=== PATIENT | female | born 1995 | race Asian ===

== ENCOUNTER 2019-02-05 19:01 | Outpatient (CLI) | payer OTHER, SELFPAY ==
[2019-02-05 20:06] LABS: APPEARANCE, URINE HAZY (CLEAR); BACTERIA, URINE AUTO 1+ (NEGATIVE); BILIRUBIN, URINE AUTO NEGATIVE (NEGATIVE); BLOOD, URINE BLOOD NEGATIVE (NEGATIVE); COLOR, URINE STRAW (YELLOW); GLUCOSE, URINE (UA) AUTO NEGATIVE (NEGATIVE); KETONE, URINE AUTO NEGATIVE (NEGATIVE); LEUKOCYTE ESTERASE, URINE AUTO 3+ (NEGATIVE); MUCUS, URINE SMALL (NEGATIVE); NITRITE, URINE AUTO NEGATIVE (NEGATIVE); PROTEIN, URINE AUTO NEGATIVE (NEGATIVE); RBC, URINE AUTO 5 /HPF (0-3); SPECIFIC GRAVITY URINE AUTO 1.001 (1.002-1.035); SQUAMOUS EPITHELIAL CELL UR AU 6 /HPF (0-6); UROBILINOGEN, URINE AUTO 0.2 mg/dL (0.0-2.0); WBC, URINE AUTO 28 /HPF (0-3)
[2019-02-05] MEDS ORDERED: NITROFURANTOIN (MACROBID) 100 MG CAP PO ONE (20:30)
[2019-02-05] MEDS ORDERED: MACR100C43 PO (20:45)
== END 2019-02-05 20:40 | disposition home or self-care (01) ==
LOC: M LDO 19:01
PROVIDERS: ATTEND Advanced Practice Midwife
DX: O47.03 False labor before 37 completed weeks of gestation, third trimester (principal); O26.893 Other specified pregnancy related conditions, third trimester; R10.2 Pelvic and perineal pain; Z3A.31 31 weeks gestation of pregnancy
CPT/HCPCS: 59025; 81001; G0378; G0463

== ENCOUNTER 2019-04-11 13:46 | Inpatient (IN) | payer OTHER ==
[~2019-04-11] VITALS: Ht 147.3 cm; Wt 62.6 kg
[~2019-04-11 13:46] MED LIST: MACR100C43 PO
[2019-04-11] MEDS ORDERED: VITA100T59 PO (14:07)
[2019-04-11] MEDS ORDERED: PRENTAB9 PO (14:07)
[2019-04-11] MEDS ORDERED: IRON325T2 PO (14:07)
[2019-04-11 14:09] VITALS: BP 110/60
[2019-04-11] MEDS ORDERED: LR 1,000 ML IV SCH (15:05)
[2019-04-11] MEDS ORDERED: LACTATED RINGER'S 1000 ML IV STA (15:05)
[2019-04-11 15:13] VITALS: BP 109/65
[2019-04-11 15:25] LABS: HEMATOCRIT 31.6 % (36.0-47.0); HEMOGLOBIN 10.6 g/dl (12.0-15.5); MEAN CORPUSCULAR HEMOGLOBIN 30.6 pg (27.0-33.0); MEAN CORPUSCULAR HGB CONC 33.5 g/dl (32.0-36.5); MEAN CORPUSCULAR VOLUME 91.3 fl (80.0-96.0); PLATELET COUNT, AUTOMATED 210 10^3/uL (150-450); RED BLOOD COUNT 3.46 10^6/uL (4.00-5.40)
--- NOTE | 2019-04-11 15:39 | HPEPDOC ---
Obstetrical History & Physical General Date of Admission Apr 11, 2019 at 14:10 Primary Care Physician: BRIANNA THORNE DO History of Present Illness patient is a 23 yo @ 40+2WKS gestation KARTIK [id number] presents for regular painful contractions. patient desires to have epidural for pain management. denies LOF/VB. +fm. Chief Complaint: Contractions, term Information Provided By: Patient Age: 23 : 2 Term: 1 Pre-term: 0 Abortions: 0 Livin Care Care: Good Care Dating Final EDC: Apr 09, 2019 Final EDC for Daily Update: Apr 09, 2019 Final EDC by: LMP LMP: Jul 03, 2018 EGA at Admission: 40.2 Past Medical History Past Obstetrical History : Past Obstetrical History: Multigravida Type of Delivery: Spontaneous Vaginal Del. 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: No pertinent history Past Medical History Medical History denies Surgical History: Denies/None Family History Significant Family History: No pertinent family hx Social History Social history denies tob/etoh/illicit rx Marital Status: Family situation: Spouse/partner home Psychosocial History: No pertinent psych hx * Smoker: former Smoker Alcohol: Denies Drugs: denies Imunizations Tdap status: current Influenza Status: needs Allergies Coded Allergies: No Known Allergies (Unverified , 02/05/19) Medications Scheduled Ascorbic Acid (Vitamin C) 100 Mg Tablet, 1 TAB PO TID Ferrous Sulfate (Iron) 325 Mg Tablet, 1 TAB PO TID No.137/Iron/Folic Acd ( Vitamin Tablet) 1 Each Tablet, 1 TAB PO DAILY Physical Examination Physical Examination GENERAL: Alert and oriented times three. BREAST: . ABDOMEN: Gravid and non-tender to touch. FETUS: Is vertex (VTX) by sterile vaginal examination (SVE), fetus is vertex (VTX) by Guilherme. HEART RATE: Regular rate and rhythm. LUNGS: Clear to auscultation (CTA). EXTREMITIES: No edema. No clonus. Deep tendon reflexes (DTRs) + . Vital Signs/I&O Vital Signs Date Time Temp Pulse Resp B/P (MAP) Pulse Ox O2 Delivery O2 Flow Rate FiO2 04/11/19 14:09 97.7 83 20 110/60 (77) Laboratory Data 24H LABS Laboratory Tests 2 04/11/19 14:38: Serology Scanned Report Hepatitis B Testing Pertinent Laboratoy Data Blood Type: O+ RBC Antibody Screen: Negative HIV: Negative Hepatitis B: Negative Hepatitis C: Unknown Rapid Plasma Reagin: Nonreactive Rubella: Immune Varicella: Immune Chlamydia/Gonorrhea: Negative Group B Streptococcus: Negative Quad Screen Test: Negative Glucose Tolerance Test: 136 (3hr: 86/151/151/130) Anatomy Ultrasound Ultrasound Date: December 06, 2017 Placenta Location: Anterior Normal Anatomy: Yes Assessment/Plan Assessment patient is a 23 yo @40+2wks gestation KARTIK [id number] in labor. patient d esires epidural for pain management. Plan Admit and orient. 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 Diet: clear fluid Group B Streptococcus (GBS) negative. Labs and intravenous (IV) per unit protocol. Counseled on Pitocin for augmentation as needed. Lactated Ringers (LR): Bolus 1000 mL, then at 125 mL/hr. Anticipate normal spontaneous delivery (). C-S as appropriate DO Alexa Labor and Delivery Counseling Counseled patient on risks of emergent delivery for or maternal concerns. Discussed risks of operative vaginal delivery of vacumn or forceps for concern or prolonged second stage, risks of bleeding requiring blood transfusion, infection requiring antibiotics and prolonged hospital stay. discussed monitoring for contractions and heart tracing, IUPC as well as fse. DO ALEXA Thorne LUAT N. DO Apr 11, 2019 15:05
[2019-04-11 16:16] VITALS: BP 113/69
--- NOTE | 2019-04-11 17:16 | IPNPDOC ---
Text Note Date of Service The patient was seen on 04/11/19. NOTE Patient received bolus of 1L LR. Her contractions slows down as well as decr eased in intensity. Patient expresses desires to go home if she has not made progress in her cervical dilation. vitals: reviewed, normal NAD abd: nd, soft, nt, cephalic ce: 4/80/-3, medium, posterior fht: reactive a/p patient is @ 40+2wks, not in active labor at this time. Discussed return pr ecautions (frequent painful contractions, vaginal bleeding, lost of fluid, decreased movement). Discharged as outpatient visit. DO Fadumo VS,Kevin, I+O VS, Fishbone, I+O Laboratory Tests 04/11/19 15:09 Red Blood Count 3.46 L, Mean Corpuscular Volume 91.3, Mean Corpuscular Hemoglobin 30.6, Mean Corpuscular Hemoglobin Concent 33.5, Red Cell Distribution Width 13.2 Vital Signs Date Time Temp Pulse Resp B/P (MAP) Pulse Ox O2 Delivery O2 Flow Rate FiO2 04/11/19 16:16 74 18 113/69 (84) 04/11/19 14:09 97.7 BRIANNA LIU DO Apr 11, 2019 17:16
[2019-04-11 17:31] VITALS: BP 122/70
== END 2019-04-11 17:47 | disposition home or self-care (01) | DRG 833 ==
LOC: M LDO 13:46 → M LDI 14:10
PROVIDERS: ADMIT Obstetrics & Gynecology; ATTEND Obstetrics & Gynecology
DX: O48.0 Post-term pregnancy (principal); Z3A.40 40 weeks gestation of pregnancy

== ENCOUNTER 2019-04-12 04:51 | Inpatient (IN) | payer OTHER ==
[2019-04-12] VITALS (23 sets, daily range): BP systolic 92–126; BP diastolic 54–79
[~2019-04-12] VITALS: Ht 147.3 cm; Wt 62.8 kg
[~2019-04-12 04:51] MED LIST changes: +IRON325T2 PO; +PRENTAB9 PO; +VITA100T59 PO
[2019-04-12] MEDS ORDERED: OXYTOCIN 30 UNITS IN 0.9% NaCl 500ML IV BAG (J2590) As Ordered ONE (06:18)
[2019-04-12 06:56] LABS: HEMATOCRIT 30.7 % (36.0-47.0); HEMOGLOBIN 9.8 g/dl (12.0-15.5); MEAN CORPUSCULAR HEMOGLOBIN 30.2 pg (27.0-33.0); MEAN CORPUSCULAR HGB CONC 31.9 g/dl (32.0-36.5); MEAN CORPUSCULAR VOLUME 94.5 fl (80.0-96.0); PLATELET COUNT, AUTOMATED 192 10^3/uL (150-450); RED BLOOD COUNT 3.25 10^6/uL (4.00-5.40); WHITE BLOOD COUNT 15.8 10^3/uL (4.0-10.0)
[2019-04-12] MEDS ORDERED: LR 1,000 ML IV SCH (07:19)
[2019-04-12] MEDS ORDERED: MEASLES,MUMPS,RUBELLA VACCINE INJ (MMR-II) (90707) SC SCH (07:30)
[2019-04-12] MEDS ORDERED: DOCUSATE SODIUM 100 MG CAP PO PRN (07:30)
[2019-04-12] MEDS ORDERED: RHOGAM 300 MCG (1500 IU) INJ (J2790) IM SCH (07:30)
[2019-04-12] MEDS ORDERED: ACETAMINOPHEN 500 MG TAB PO PRN (07:30)
[2019-04-12] MEDS ORDERED: DIBUCAINE 1% OINTMENT 30GM TOP PRN (07:30)
[2019-04-12] MEDS ORDERED: IBUPROFEN 600 MG TAB PO PRN (07:30)
[2019-04-12] MEDS ORDERED: IBUPROFEN 800 MG TAB PO PRN (07:30)
[2019-04-12 07:43] LABS: CORD GAS ABE A -7.4; CORD GAS HCO3 A 17.5 MEQ/L; CORD GAS O2 SAT A 88.5 %; CORD GAS PCO2 A 33.9 mmHg; CORD GAS PH A 7.33 UNITS; CORD GAS PO2 A 48.7 mmHg; CORD GAS SBC A 18.4 MEQ/L; CORD GAS TCO2 A 18.5 MEQ/L
[2019-04-12 07:44] LABS: CORD GAS ABE V -5.5; CORD GAS HCO3 V 19.4 MEQ/L; CORD GAS O2 SAT V 96.1 %; CORD GAS PCO2 V 36.1 mmHg; CORD GAS PH V 7.348 UNITS; CORD GAS PO2 V 66.7 mmHg; CORD GAS TCO2 V 20.5 MEQ/L
[2019-04-12] MEDS ORDERED: OXYTOCIN DRIP 30 UNITS in IV 1 EA IV SCH (08:00)
[2019-04-12] MEDS ORDERED: LIDOCAINE 1% MDV 20ML VIAL SC ONE (08:00)
[2019-04-12] MEDS ORDERED: METHYLERGONOVINE MALEATE 0.2 MG/ML VIAL (J2210) IM ONE ×2 (08:00)
[2019-04-12] MEDS ORDERED: OXYTOCIN INJ 10 UNITS/ML VIAL (J2590) IM ONE ×2 (08:00)
[2019-04-12] MEDS ORDERED: miSOPROStol 200 MCG TAB (S0191) PR ONE (08:00)
[2019-04-12] MEDS ORDERED: METHYLERGONOVINE MALEATE 0.2 MG/ML VIAL (J2210) As Ordered ONE ×2 (08:06→08:07)
[2019-04-12] MEDS ORDERED: LIDOCAINE 1% MDV 20ML VIAL As Ordered ONE (08:08)
[2019-04-12] MEDS ORDERED: miSOPROStol 200 MCG TAB (S0191) As Ordered ONE (08:09)
[2019-04-12] MEDS ORDERED: OXYTOCIN INJ 10 UNITS/ML VIAL (J2590) As Ordered ONE (08:10)
[2019-04-12] MEDS ORDERED: AMPICILLIN SOD/SULBACTAM SOD 3 GM in D5W MINI-BAG PLUS 100 ML IV ONE (08:30)
--- NOTE | 2019-04-12 08:43 | HPEPDOC ---
Obstetrical History & Physical General Date of Admission Apr 12, 2019 at 05:42 History of Present Illness patient i a 23 yo G2 now p2 presented to l&d after she ruptured membrane at home and progressed to have spontaneous vaginal delivery. see delivery note for details. Care Care: Other Number of Visits: 6 Dating Final EDC: Apr 09, 2019 Past Medical History Past Obstetrical History : Past Obstetrical History: Multigravida ( x 2, shoulder dystocia and pph requiring blood transfusion with second delivery) Type of Delivery: Spontaneous Vaginal Del. Sex of : Female Complications: No Past Medical History Surgical History: Denies/None Family History Significant Family History: No pertinent family hx Social History Marital Status: Family situation: Spouse/partner home Psychosocial History: No pertinent psych hx * Smoker: non-smoker Alcohol: Denies Drugs: denies Allergies Coded Allergies: No Known Allergies (Unverified , 02/05/19) Medications Scheduled Ascorbic Acid (Vitamin C) 100 Mg Tablet, 1 TAB PO TID Ferrous Sulfate (Iron) 325 Mg Tablet, 1 TAB PO TID No.137/Iron/Folic Acd ( Vitamin Tablet) 1 Each Tablet, 1 TAB PO DAILY Physical Examination Physical Examination GENERAL: Alert and oriented times three. BREAST: . ABDOMEN: , fundus at U-2. HEART RATE: Regular rate and rhythm. LUNGS: Clear to auscultation (CTA). EXTREMITIES: No edema. No clonus. No erythema. non tender. scant vaginal bleeding with fundal rub Vital Signs/I&O Vital Signs Date Time Temp Pulse Resp B/P (MAP) Pulse Ox O2 Delivery O2 Flow Rate FiO2 04/12/19 08:14 99.7 04/12/19 08:00 90 16 99/58 (72) 99 Laboratory Data 24H LABS Laboratory Tests 2 04/12/19 05:44: Serology Scanned Report Hepatitis B Testing 04/12/19 06:51: Nucleated Red Blood Cells % (auto) 0.0 04/12/19 07:33: Cord Arterial Blood pH 7.330, Cord Arterial Blood PCO2 33.9, Cord Arterial Blood PO2 48.7, Cord Arterial Blood HCO3 17.5, Cord Arterial Blood Total CO2 18.5, Cord Arterial Blood Base Excess -7.4, Cord Arterial Base Excess (Standard 18.4, Cord Arterial Bld Oxygen Saturation 88.5, Cord Venous Blood pH 7.348, Cord Venous Blood PCO2 36.1, Cord Venous Blood PO2 66.7, Cord Venous Blood HCO3 19.4, Cord Venous Blood Total CO2 20.5, Cord Venous Base Excess (Actual) -5.5, Cord Venous Base Excess (Standard) 20.0, Cord Venous Blood Oxygen Saturation 96.1 CBC/BMP Laboratory Tests 04/12/19 06:51 Red Blood Count 3.25 L, Mean Corpuscular Volume 94.5, Mean Corpuscular Hemoglobin 30.2, Mean Corpuscular Hemoglobin Concent 31.9 L, Red Cell Distribution Width 13.5 Pertinent Laboratoy Data Blood Type: O+ RBC Antibody Screen: Negative HIV: Negative Hepatitis B: Negative Rapid Plasma Reagin: Nonreactive Rubella: Immune Varicella: Immune Chlamydia/Gonorrhea: Negative Group B Streptococcus: Negative Anatomy Ultrasound Placenta Location: Anterior Normal Anatomy: Yes Placenta Previa: No Assessment/Plan Assessment patient is a 23 yo G2now p2 s/p spontaneous vaginal delivery complicated by shoulder dystocia and hemorrhage. Patient received 3 units PRBC and 2 liters of NS transfused. Currently clinically stable. Plan Admit to l&d for care patient verbally consented for blood products Diet: regular Group B Streptococcus (GBS) negative labs ordered for now and 6hrs transfer patient to mother baby once meet criteria. DO ALEXA Thorne LUAT N. DO Apr 12, 2019 08:32
[2019-04-12] MEDS ORDERED: TRANEXAMIC ACID INJection 1,000 MG in NS 100 ML IV ONE (09:00)
[2019-04-12] MEDS: PRENATAL VITAMINS CHEWABLE TABLET PO SCH (09:00)
[2019-04-12 09:10] LABS: HEMATOCRIT 33.6 % (36.0-47.0); HEMOGLOBIN 11.2 g/dl (12.0-15.5); MEAN CORPUSCULAR HEMOGLOBIN 30.2 pg (27.0-33.0); MEAN CORPUSCULAR HGB CONC 33.3 g/dl (32.0-36.5); MEAN CORPUSCULAR VOLUME 90.6 fl (80.0-96.0); PLATELET COUNT, AUTOMATED 151 10^3/uL (150-450); RED BLOOD COUNT 3.71 10^6/uL (4.00-5.40); WHITE BLOOD COUNT 20.5 10^3/uL (4.0-10.0)
--- NOTE | 2019-04-12 09:13 | DNPDOC ---
[facility] Delivery Note Delivery Note DATE OF DELIVERY: [id number] PREDELIVERY DIAGNOSIS: 40+3/7 weeks' gestation and labor. POST DELIVERY DIAGNOSIS: Delivered. shoulder dystocia hemorrhage PROCEDURE: repair of second degree laceration PLATE EMBOSSER: Rolando Urbina DO ANESTHESIA: none ESTIMATED BLOOD LOSS: 1000 mL. FINDINGS: 8 pound 6 ounce female infant, Score 3/8/9, nuchal cord times x1 (tight) DELIVERY SUMMARY: Patient is a 23-year-old G2 now para 2002 who presented to l&d after spontaneous ruptured membrane at home. She was checked to be c/c/+2 with urge to push. Baby head delivered and restituted LOT. Tight nuchal cord palpated and was not able to be reduced. Anterior shoulder dystocia recognized after two subsequent pushes. Sumit maneuver and supra pubic pressure from left to right performed by nurse could not release shoulder. Posterior arm followed down and flexed arm at elbow. Posterior left arm delivered. Anterior shoulder delivered. Body delivered summersault through cord. Cord clamped x 2 and cut. Baby taken to warmer. Cord gas and cord blood collected. Pitocin 10U given IM due to lack of IV access at this point. Placenta delivered spontaneously. Fundus massaged firm. Patient continues to have brisk bleeding. Additional pitocin 10U IM given. Cytotec 1000mcg placed rectally. Hemorrhage kit and cart called for at this point. Two IVs started. Patient continues to have brisk bleeding. Methergine 0.2mg IM given. Uterine exploration did not find retained products. Speculum exam did not identify vaginal or cervical laceration. Lower uterine segment atony is presumed diagnosis at this point. Bleeding improved. EBL is at this point is 1000cc. At this point, patient begins to feel dizzy on bed. Unable to get bp with a light pulse. Lactated ringer bolus started. Massive transfusion protocol called for 2 units of PRBC. Total 3 units of PRBC given rapid transfusion. Addition methergine 0.2mg IM and IV pitocin given. Mendez cath placed. BP 118/58, HR: 100. patient stable. Unasyn 3gm IV ordered for prophy. Baby went to NICU for monitoring. DO ALEXA Thorne LUAT N. DO Apr 12, 2019 09:13
[2019-04-12 09:24] LABS: INR 1.12; PROTHROMBIN TIME 14.2 SECONDS (11.8-14.0)
[2019-04-12 09:25] LABS: PARTIAL THROMBOPLASTIN TIME 28.1 SECONDS (25.0-38.4)
[2019-04-12] MEDS: METHYLERGONOVINE MALEATE 0.2 MG TAB PO SCH ×3 (11:44→19:32)
[2019-04-12] MEDS ORDERED: METHYLERGONOVINE MALEATE 0.2 MG TAB PO SCH (12:00)
[2019-04-12 14:07] LABS: HEMATOCRIT 31.7 % (36.0-47.0); HEMOGLOBIN 10.8 g/dl (12.0-15.5); MEAN CORPUSCULAR HEMOGLOBIN 30.9 pg (27.0-33.0); MEAN CORPUSCULAR HGB CONC 34.1 g/dl (32.0-36.5); MEAN CORPUSCULAR VOLUME 90.6 fl (80.0-96.0); PLATELET COUNT, AUTOMATED 158 10^3/uL (150-450); WHITE BLOOD COUNT 17.7 10^3/uL (4.0-10.0)
[2019-04-13] MEDS: METHYLERGONOVINE MALEATE 0.2 MG TAB PO SCH (00:26)
[2019-04-13 06:00] VITALS: BP 96/62
[2019-04-13 07:28] LABS: MEAN CORPUSCULAR HEMOGLOBIN 30.4 pg (27.0-33.0); MEAN CORPUSCULAR HGB CONC 33.5 g/dl (32.0-36.5); MEAN CORPUSCULAR VOLUME 90.9 fl (80.0-96.0); PLATELET COUNT, AUTOMATED 151 10^3/uL (150-450); RED BLOOD COUNT 2.86 10^6/uL (4.00-5.40)
[2019-04-13 07:43] LABS: HEMOGLOBIN 8.7 g/dl (12.0-15.5)
--- NOTE | 2019-04-13 08:40 | IPN ---
DATE OF SERVICE: 04/13/2019 day #1. 23-year-old 2 now para 2 who was admitted fully dilated and precipitously was delivered at 40 and 3 weeks of gestation. She had a shoulder dystocia followed by a hemorrhage, delivered a live female 8 pounds 6 ounces, of 3, 8 and 9 at one, five, and ten minutes respectively. Arterial pH 7.33, base excess -7.4, venous pH 7.34, base excess -5.5. She sustained a second-degree tear which was repaired. Her stick hemoglobin on admission was 9.8, hematocrit was 30.7 and platelets are 192. After 3 units of O negative blood and the rapid transfusion, her hemoglobin was 10.8, hematocrit 31.7 and platelets were 158. We are pending hemoglobin at 0630 hours this morning. The rest the examination is unremarkable. Normocephalic, atraumatic. Neck: Full range of motion. Pupils equal and reactive to light. Distal pulses symmetric. No evidence of DVT, PE or superficial phlebitis. Chest is clear bilaterally bases. No wheezes or rhonchi. No CVA tenderness. Abdomen soft. Uterus two below. Lochia is moderate. Four quadrant bowel sounds are noted. Perineum is healing. She has no rashes, lesions or pruritus. No arthralgia or myalgia. No complaint of joint pain. No complaint of cough, wheeze, shortness of breath or dyspnea on exertion. She is asymptomatic from her hemorrhage. PLAN: Our plan is to repeat her CBC today. She should now be hemodynamically resuscitated. Planned for discharge tomorrow morning. Medications will be dispensed and she will have a 6-week [place] checkup.
[2019-04-13] MEDS: PRENATAL VITAMINS CHEWABLE TABLET PO SCH (09:15)
[2019-04-13] MEDS: ACETAMINOPHEN TAB 650MG DOSE (2X325MG) PO PRN (15:19)
[2019-04-13 18:12] VITALS: BP 103/66
[2019-04-14 05:48] VITALS: BP 107/61
[2019-04-14] MEDS ORDERED: DIBU10OI TOP (06:09)
[2019-04-14] MEDS ORDERED: IBUP80TA PO (06:09)
[2019-04-14] MEDS ORDERED: ACET1TAB55 PO (06:09)
--- NOTE | 2019-04-14 06:17 | DS.PDOC ---
Discharge Summary General Date of Admission Apr 12, 2019 at 05:42 Date of Discharge Apr 14, 2019 Discharge Summary HOSPITAL COURSE: Tara is a 24 yo G2 now P2 who was admitted on 12Apr2019 in the early AM in precipitous labor. She underwent an complicated by a shoulder dystocia and then hemorrhage requiring multiple uterotonics and 3U PBRCs to treat. She also received Unasyn for infection prophylaxis due to having a uterine sweep. She ultimately recovered well. H/H remained stable on PPD#2 and she had no symptoms of anemia with ambulation. She met all appropriate discharge criteria on PPD#2. She was ambulating without problems, had minimal lochia, had minimal pain, was tolerating PO, and was voiding spontaneously. Infant did well after a brief transition period in the NICU. DISCHARGE MEDICATIONS: Please see below. ALLERGIES: Please see below. PHYSICAL EXAMINATION ON DISCHARGE: VITAL SIGNS: Please see below. GENERAL: AAOX3, sitting up in bed, NAD ABDOMINAL EXAMINATION: Fundus firm at U-2. No fundal tenderness. EXTREMITIES: No edema PSYCHIATRIC EXAMINATION: Affect appropriate. LABORATORY DATA: Please see below. ACTIVITY: Pelvic rest for 6 weeks DIET: Regular DISCHARGE PLAN: Discharge home DISPOSITION: Discharge home on 14Apr2019. DISCHARGE INSTRUCTIONS: 1. Pelvic rest for 6 weeks. 2. Continue iron for anemia ITEMS TO FOLLOWUP ON ON OUTPATIENT: 1. appointment DISCHARGE CONDITION: Stable. TIME SPENT ON DISCHARGE: Greater than 20 minutes. Carlitos Iniguez, Vital Signs/I&Os Vital Signs Date Time Temp Pulse Resp B/P (MAP) Pulse Ox O2 Delivery O2 Flow Rate FiO2 04/14/19 05:48 98.1 95 20 107/61 (76) 04/12/19 08:00 99 Laboratory Data Labs 24H Laboratory Tests 2 04/13/19 07:10: Nucleated Red Blood Cells % (auto) 0.0 CBC/BMP Laboratory Tests 04/13/19 07:10 Red Blood Count 2.86 L, Mean Corpuscular Volume 90.9, Mean Corpuscular Hemoglobin 30.4, Mean Corpuscular Hemoglobin Concent 33.5, Red Cell Distribution Width 14.2 Discharge Medications Scheduled Ascorbic Acid (Vitamin C) 100 Mg Tablet, 1 TAB PO TID, (Reported) Ferrous Sulfate (Iron) 325 Mg Tablet, 1 TAB PO TID, (Reported) No.137/Iron/Folic Acd ( Vitamin Tablet) 1 Each Tablet, 1 TAB PO DAILY, (Reported) Scheduled PRN Acetaminophen (Acetaminophen) 325 Mg Tablet, 650 MG PO Q4HP PRN for PAIN SCALE 1-5 Dibucaine (Dibucaine) 28 Gm Oint...g., 0 DOSE TOP Q4HP PRN for PAIN Ibuprofen (Ibuprofen) 800 Mg Tablet, 800 MG PO Q8HP PRN for PAIN SCALE 6-10 Allergies Coded Allergies: No Known Allergies (Unverified , 02/05/19) CARLITOS INIGUEZ DO Apr 14, 2019 06:17
[2019-04-14] MEDS: ACETAMINOPHEN TAB 650MG DOSE (2X325MG) PO PRN (08:59)
[2019-04-14] MEDS: PRENATAL VITAMINS CHEWABLE TABLET PO SCH (08:59)
[2019-04-14] MEDS ORDERED: INFLUENZA QUADRIVALENT PF VACCINE 0.5ML SYRINGE (90686) IM ONE (09:00)
== END 2019-04-14 11:00 | disposition home or self-care (01) | DRG 806 ==
LOC: M LDO 04:51 → M LDI 05:42 → M OBS 13:38
PROVIDERS: ADMIT Obstetrics & Gynecology; ATTEND Obstetrics & Gynecology
PROC: 10E0XZZ Delivery of Products of Conception, External Approach (ICD-10-PCS; principal; 2019-04-12)
PROC: 0KQM0ZZ Repair Perineum Muscle, Open Approach (ICD-10-PCS; 2019-04-12)
PROC: 30233N1 Transfusion of Nonautologous Red Blood Cells into Peripheral Vein, Percutaneous Approach (ICD-10-PCS; 2019-04-12)
DX: O48.0 Post-term pregnancy (principal); Z37.0 Single live birth; O72.1 Other immediate postpartum hemorrhage; Z3A.40 40 weeks gestation of pregnancy; O66.0 Obstructed labor due to shoulder dystocia; O69.1XX0 Labor and delivery complicated by cord around neck, with compression, not applicable or unspecified; O70.1 Second degree perineal laceration during delivery; O62.3 Precipitate labor